=== PATIENT | female | born 1950 | race Caucasian/White ===

== ENCOUNTER → 2023-09-26 11:13 | Outpatient (REF) | payer MEDICARE, OTHER, SELFPAY | LOC: RCS 11:13 | PROVIDERS: ATTENDING PHYSICIAN Internal Medicine | DX: R00.1 Bradycardia, unspecified (principal) | CPT/HCPCS: 93225; 93226 ==

== ENCOUNTER 2023-10-04 06:21 | Day surgery (SDC) | payer MEDICARE, OTHER, SELFPAY ==
[2023-10-04 12:46] VITALS: BMI 36.1
[2023-10-04 12:48] VITALS: BMI 36.1
[2023-10-04 12:49] VITALS: BP 130/65
[2023-10-04] MEDS: NORMOSOL-R 1000 IV (13:10)
[2023-10-04 18:00] VITALS: BP 130/65; BP 150/69
[2023-10-04 18:15] VITALS: BP 152/82
[2023-10-04 18:40] VITALS: BP 134/73
[2023-10-04 19:05] VITALS: BP 121/85
== END 2023-10-04 19:32 | disposition home or self-care (01) ==
LOC: SDS 06:21
PROVIDERS: ATTENDING PHYSICIAN Otolaryngology Facial Plastic Surgery
DX: S02.2XXA Fracture of nasal bones, initial encounter for closed fracture (principal); J34.3 Hypertrophy of nasal turbinates; J34.89 Other specified disorders of nose and nasal sinuses; X58.XXXA Exposure to other specified factors, initial encounter
CPT/HCPCS: 30465; 30140; 21335; 88304; 88311